=== PATIENT | male | born 1945 | race Caucasian/White ===

== ENCOUNTER 2016-10-22 09:00 | Day surgery (SDC) | payer MEDICARE ==
[~2016-10-22] VITALS: Ht 182.9 cm; Wt 99.6 kg
[~2016-10-22 09:00] MED LIST: ALBU8.5H2 INHALATION; ASPI-973 PO; CHOL10008 PO; CITA20TA11 PO; FLUT15.88 NS; PROP80CA40 PO; SIMV20TA4 PO
[2016-10-22] MEDS ORDERED: 0.9% Sodium Chloride 1,000 ML IV PRN (09:02)
[2016-10-22] MEDS ORDERED: fentaNYL-PF 50 mCg/mL 2 mL Inj IVPUSH PRN (09:05)
[2016-10-22] MEDS ORDERED: Sodium Chloride LOK Flush 10 mL Syringe IV PRN (09:05)
[2016-10-22 09:38] VITALS: BP 141/78; PULSE 58; RESP 14; O2SAT 97
[2016-10-22] MEDS ORDERED: TAMS0.4C98 PO (09:48)
[2016-10-22 10:44] VITALS: BP 141/69; PULSE 52; RESP 16; O2SAT 90
[2016-10-22 10:54] VITALS: BP 134/69; PULSE 51; RESP 16; O2SAT 92
[2016-10-22 11:04] VITALS: BP 144/68; PULSE 52; RESP 16; O2SAT 94
[2016-10-22 11:14] VITALS: BP 115/47; PULSE 60; RESP 16; O2SAT 92
[2016-10-22 11:24] VITALS: BP 131/64; PULSE 57; RESP 16; O2SAT 94
--- NOTE | 2016-10-22 11:26 | ENDO ---
[address] [address] ENDOSCOPY PROCEDURE PATIENT: RUTH ANN ARCHIBALD : 1945 MR#: [id number] ADMIT: 10/22/2016 JOB ID: [id number] DATE: 10/22/2016 PROCEDURE: Colonoscopy. INDICATIONS: Screening. The patient's ASA classification is 2. Mallampati score is 2. MEDICATIONS: 1. Versed 5 mg. 2. Fentanyl 150 mcg. INSTRUMENT USED: PCF H 190 L. PREPARATION QUALITY: Was poor. PROCEDURE DETAILS: After informed consent was obtained, the patient was brought into the GI suite, where he was placed on oxygen via nasal cannula and monitored with continuous pulse oximeter, telemetry and blood pressure monitoring. A time-out was performed. Then, he was placed in a left lateral decubitus position and medications were administered for sedation. A digital rectal examination with palpation of the prostate revealed brown solid stool in the rectum. This colonoscope was then inserted into the rectum and we did see small amounts of solid stool in the rectum. However, we were able to visualize more proximal lumen and, therefore, the colonoscope was advanced. As I advanced the scope, there was more solid stool limiting complete view of the mucosa. However, lumen was visible and, therefore, we with careful advancement were able to advance the scope to the cecum. Once the cecum was reached, the colonoscope was withdrawn. As the colonoscope was withdrawn, there was a polyp noted in the proximal ascending colon that measured approximately 8 mm which was removed with a hot snare. There were several other polyps seen in the ascending colon. They were all less than 1 cm. Approximately four were seen. These polyps were not removed secondary to poor visualization. The colonoscope was then withdrawn. Retroflexion in the rectum was not performed as there was stool in the rectum. IMPRESSION: 1. Ascending colon polyp that was removed with a hot snare. 2. Poor prep. RECOMMENDATIONS: Repeat colonoscopy with a two day prep. COMPLICATIONS: None. ESTIMATED BLOOD LOSS: 0.
--- NOTE | 2016-10-23 15:09 | PATH ---
SURGICAL PATHOLOGY Attending Physician:Joseph Motley CASE STATUS: Signed Out PATIENT NAME: RUTH NAN ARCHIBALD PID: [id number] : 1945 DATE COLLECTED:10/22/2016 16:04 SPECIMEN: Colon, Biopsy CLINICAL HISTORY: A: ASCENDING COLON POLYP FINAL DIAGNOSIS: 1.ASCENDING COLON POLYP: TUBULAR ADENOMA. ICD10 CODE D12.2 GROSS DESCRIPTION: The specimen is received in one formalin filled container labeled with the patient's name, sublabeled "ascending colon polyp" and consists of a 0.7 x 0.6-0.5 CM portion of tissue. The specimen is trisected and totally submitted in one cassette. 10/22/2016 [facility] MICRO DESCRIPTION: See diagnosis. ICD-9 CODES: CPT CODES: 1: 07212 Electronically Signed Out Ngoc Villagran MD [facility] Pathology [facility], [place] [address] Technical component performed at [facility], [address] [place] [address] Ave[address], [place], [address]
== END 2016-10-22 23:59 | disposition home or self-care (01) ==
LOC: END 09:00
PROVIDERS: ATTEND Internal Medicine Gastroenterology
DX: Z12.11 Encounter for screening for malignant neoplasm of colon (principal); D12.2 Benign neoplasm of ascending colon
CPT/HCPCS: 45385; G0500; J2250; J7030

== ENCOUNTER 2017-02-04 08:07 | Day surgery (SDC) | payer MEDICARE ==
[~2017-02-04] VITALS: Ht 182.9 cm; Wt 97.5 kg
[~2017-02-04 08:07] MED LIST changes: +0.9% Sodium Chloride 1,000 ML IV SCH; +Sodium Chloride LOK Flush 10 mL Syringe IV PRN; +TAMS0.4C98 PO; +fentaNYL-PF 50 mCg/mL 2 mL Inj IVPUSH PRN
[2017-02-04 09:05] VITALS: BP 153/82; PULSE 57; RESP 14; O2SAT 97
[2017-02-04] MEDS ORDERED: RIBO25TA PO (09:09)
[2017-02-04 10:23] VITALS: BP 137/67; PULSE 53; RESP 14; O2SAT 96
[2017-02-04 10:33] VITALS: BP 131/68; PULSE 58; RESP 16; O2SAT 98
[2017-02-04 10:45] VITALS: BP 142/68; PULSE 52; RESP 16; O2SAT 97
--- NOTE | 2017-02-04 11:07 | ENDO ---
[address] [address] ENDOSCOPY PROCEDURE PATIENT: RUTH ANN ARCHIBALD : 1945 MR#: [id number] ADMIT: 02/04/2017 JOB ID: [id number] DATE: 02/04/2017 PROCEDURE: Colonoscopy. INDICATION: Screening. The patient initially had undergone a colonoscopy in October, and at that time, he had a poor prep and one tubular adenoma was seen and, therefore, he was brought back today for repeat colonoscopy for screening. The patient's ASA classification is 2. Mallampati score is 2. MEDICATIONS: 1. Versed 5 mg. 2. Fentanyl 100 mcg. INSTRUMENT USED: PCF H 180 AL. PREPARATION QUALITY: Was fair. PROCEDURE DETAILS: After informed consent was obtained, the patient was brought into the GI suite, where he was placed on oxygen via nasal cannula and monitored with continuous pulse oximeter, telemetry and blood pressure monitoring. A time-out was performed. Then, he was placed in the left lateral decubitus position and medications were administered for sedation. Digital rectal examination with palpation of the prostate was unremarkable. The colonoscope was then inserted into the rectum and advanced under direct visualization to the cecum, which was identified by the presence of the ileocecal valve and appendiceal orifice. Once the cecum was reached, the colonoscope was withdrawn back to the rectum as the mucosa and lumen were examined. In the rectum, retroflexion was performed. Following retroflexion, remaining air in the rectum was suctioned, and the procedure was completed. FINDINGS: 1. In the cecum there was an approximately 5 mm sessile polyp that was removed with a hot snare. 2. In the ascending colon, there were two polyps both measuring approximately 7 mm. Both were removed with a hot snare. 3. In the transverse colon, there was a flat polyp overlying a fold. The polyp appeared to be approximately 2.5-3 cm. It was encompassing approximately one third of the lumen wall. I did not feel I could remove this polyp and, therefore, Cinda ink was injected into the mucosa distal to and proximal to this polyp. 4. In the sigmoid colon, there was an approximately 2.5 cm pedunculated polyp that was removed with a hot snare. The resulting mucosal defect was approximated with the placement of one Piper[employer] Resolution clip. IMPRESSION: 1. Flat transverse colon polyp not removed. 2. Cecal polyp, removed. 3. Two ascending colon polyps removed. 4. Sigmoid colon polyp removed. RECOMMENDATIONS: 1. Referral to [place] for removal of flat transverse colon polyp. 2. Avoid nonsteroidal anti-inflammatory drugs and anticoagulants for 72 hours. COMPLICATIONS: None. ESTIMATED BLOOD LOSS: Less than 5 mL.
--- NOTE | 2017-02-05 17:07 | PATH ---
SURGICAL PATHOLOGY Attending Physician:Joseph Motley CASE STATUS: Signed Out PATIENT NAME: RUTH ANN ARCHIBALD PID: [id number] : 1945 DATE COLLECTED:02/04/2017 16:59 SPECIMEN: 1: Colon, Biopsy 2: Colon, Biopsy 3: Colon, Biopsy CLINICAL HISTORY: 1). CECAL POLYP X1 2). ASCENDING POLYPS X2 3). SIGMOID POLYP X1 FINAL DIAGNOSIS: 1. Cecum, Poly, Biopsy: Portions of tubular adenoma x4; negative for high-grade dysplasia. Superficial portion of colorectal mucosa x1 with no significant histomorphologic abnormality. 2. Ascending Colon, Polyp, Biopsies: Portions of tubular adenoma x7; negative for high-grade dysplasia. 3. Sigmoid Polyp, Biopsy: Tubular adenoma; negative for high-grade dysplasia. ICD10: K63.5 GROSS DESCRIPTION: The specimen is received in three formalin filled containers labeled with the patient's name. 1). The specimen is sublabeled "cecal" and consists of 5 portions of tissue and or debris which aggregate to 0.4 x 0.4 x 0.2 CM. The specimen is entirely submitted in cassette 1A. 2). The specimen is sublabeled "ascending polyp" and consists of multiple portions of tissue which aggregate to 0.6 x 0.4 x 0.3 CM. The specimen is entirely submitted in cassette 2A. 3). The specimen is sublabeled "sigmoid polyp" and consists of a 0.5 x 0.4 x 0.6 CM portion of tissue. The specimen is bisected and totally submitted in cassette 3A. 02/04/[address] [facility] ICD-9 CODES: CPT CODES: 1: 44651 2: 76216 3: 53309 Electronically Signed Out Cassidy Smith MD [facility] Pathology [facility]., [facility], [place] [address] Technical component performed at [facility], [facility] [address], [place], [address]
== END 2017-02-04 23:59 | disposition home or self-care (01) ==
LOC: END 08:07
PROVIDERS: ATTEND Internal Medicine Gastroenterology
DX: Z12.11 Encounter for screening for malignant neoplasm of colon (principal); D12.0 Benign neoplasm of cecum; D12.2 Benign neoplasm of ascending colon; D12.5 Benign neoplasm of sigmoid colon; Z86.010 Personal history of colon polyps; N40.0 Benign prostatic hyperplasia without lower urinary tract symptoms; R39.198 Other difficulties with micturition; R25.1 Tremor, unspecified; F41.1 Generalized anxiety disorder; I10 Essential (primary) hypertension; E55.9 Vitamin D deficiency, unspecified; E78.2 Mixed hyperlipidemia; M79.1 Myalgia; Z79.82 Long term (current) use of aspirin; Z79.51 Long term (current) use of inhaled steroids
CPT/HCPCS: 45381; 45385; 88305; 99153; G0500; J7030